=== PATIENT | male | born 1995 | race Caucasian/White ===

== ENCOUNTER 2019-10-13 10:43 | Inpatient (IN) | payer OTHER, SELFPAY ==
[~2019-10-13] VITALS: Ht 172.7 cm; Wt 117.9 kg
[2019-10-13] MEDS ORDERED: ACETAMINOPHEN EXTRA STRENGTH 500 MG TABLET ONE ×2 (11:09→15:39)
[2019-10-13 12:48] LABS: RAPID GROUP A STREP NEGATIVE (NEGATIVE)
[2019-10-13 14:30] LABS: BASOPHILS % (AUTO) 0.5 % (0.0-5.0); EOSINOPHILS % (AUTO) 0.4 % (0.0-8.0); HEMATOCRIT 48.5 % (42-54); LYMPHOCYTES % (AUTO) 5.6 % (21.0-51.0); MEAN CORPUSCULAR HEMOGLOBIN 28.5 pg (27.0-33.0); MEAN CORPUSCULAR HGB CONC 33.4 g/dL (32.0-36.0); MEAN CORPUSCULAR VOLUME 85.2 fL (79-99); MONOCYTES % (AUTO) 12.8 % (3.0-13.0); NEUTROPHILS % (AUTO) 80.2 % (40.0-77.0); PLATELET COUNT (AUTO) 238 K/uL (130-400); RED BLOOD CELL COUNT(AUTO) 5.69 MIL/uL (4.50-6.20); RED CELL DISTRIBUTION WIDTH 13.1 % (11.0-15.5)
[2019-10-13] MEDS ORDERED: AZITHROMYCIN 500MG+NS 250ML 250 ML IV ONE (15:38)
[2019-10-13] MEDS ORDERED: CEFTRIAXONE SODIUM 1 GM ONE (15:38)
[2019-10-13 15:52] LABS: ALBUMIN 4.3 g/dL (3.5-5.0); BILIRUBIN,TOTAL 1.2 mg/dL (0.2-1.0); TOTAL PROTEIN, SERUM 8.5 g/dL (6.0-8.3)
[2019-10-13] MEDS ORDERED: ONDANSETRON HCL 4 MG/2 ML VIAL ONE (17:02)
[2019-10-13] MEDS ORDERED: DEXTROSE 50%-WATER 50 ML DISP.SYRIN IV PRN (19:45)
[2019-10-13] MEDS ORDERED: GLUCAGON 1MG KIT 1 MG ML IM PRN (19:45)
[2019-10-13] MEDS ORDERED: ONDANSETRON HCL 4 MG/2 ML VIAL IV PRN (21:00)
[2019-10-13] MEDS ORDERED: NITROGLYCERIN 0.4 MG SL TAB SL PRN (21:00)
[2019-10-13] MEDS ORDERED: ALBUTEROL INHALER 90MCG/INH IH PRN (21:00)
[2019-10-13] MEDS ORDERED: MORPHINE SULFATE 2 MG/ML 1ML SYG IVP PRN (21:00)
[2019-10-13] MEDS ORDERED: SODIUM CHLORIDE 0.9% 1000ML 1,000 ML IV SCH ×2 (21:30→22:00)
[2019-10-13] MEDS ORDERED: FAMOTIDINE/PF 20 MG/2 ML VIAL IV ONE (21:45)
[2019-10-13] MEDS ORDERED: KETOROLAC TROMETHAMINE 15MG/ML ONE (21:53)
[2019-10-13] MEDS ORDERED: ACETAMINOPHEN 120 MG SUPPOSITORY RC ONE (21:54)
[2019-10-13 22:00] LABS: CREATINE KINASE, TOTAL 38 U/L (21-232); MYOGLOBIN 21 ng/mL (10-92); TROPONIN I < 0.04 ng/mL (0.00-0.06)
[2019-10-13] MEDS ORDERED: HYDRALAZINE HCL 20 MG/ML VIAL IV PRN (22:00)
[2019-10-13] MEDS ORDERED: ACETAMINOPHEN 650 MG SUPPOSITORY RC PRN (22:00)
[2019-10-14] VITALS (8 sets, daily range): BP systolic 111–155; BP diastolic 60–83
[2019-10-14] MEDS ORDERED: METF500S7 PO (00:52)
[2019-10-14] MEDS: NYSTATIN 100000 UNIT/ML 5ML UDCUP PO SCH ×4 (05:00→20:37)
[2019-10-14] MEDS: INSULIN HUMULIN R 100 UNIT/ML 3ML SQ SCH ×3 (05:25→11:25)
[2019-10-14 06:18] LABS: BASOPHILS % (AUTO) 0.4 % (0.0-5.0); HEMATOCRIT 38.9 % (42-54); LYMPHOCYTES % (AUTO) 9.2 % (21.0-51.0); MEAN CORPUSCULAR HEMOGLOBIN 28.7 pg (27.0-33.0); MEAN CORPUSCULAR HGB CONC 33.2 g/dL (32.0-36.0); MEAN CORPUSCULAR VOLUME 86.6 fL (79-99); MONOCYTES % (AUTO) 14.2 % (3.0-13.0); NEUTROPHILS % (AUTO) 75.8 % (40.0-77.0); PLATELET COUNT (AUTO) 207 K/uL (130-400); RED BLOOD CELL COUNT(AUTO) 4.49 MIL/uL (4.50-6.20); WHITE BLOOD COUNT (AUTO) 9.3 K/uL (4.8-10.8)
[2019-10-14 06:35] LABS: INR 1.06 (0.85-1.15); PARTIAL THROMBOPLASTIN TIME 30.2 SEC (26.3-35.5); PROTHROMBIN TIME 11.4 SEC (9.6-11.6)
[2019-10-14 06:41] LABS: ALBUMIN 3.1 g/dL (3.5-5.0); BILIRUBIN,TOTAL 0.8 mg/dL (0.2-1.0); CREATININE 0.8 mg/dL (0.5-1.5); CRP QUANTITATIVE 128.3 mg/L (0.00-9.0); POTASSIUM 3.5 mmol/L (3.5-5.1); TOTAL PROTEIN, SERUM 6.6 g/dL (6.0-8.3)
[2019-10-14 06:55] LABS: FERRITIN 148 ng/mL (30-400)
[2019-10-14 07:32] LABS: HEMOGLOBIN A1C 9.3 % (4.0-6.0)
[2019-10-14] MEDS: ASPIRIN 81MG TAB.CHEW PO SCH (09:30)
[2019-10-14] MEDS: CEFTRIAXONE SODIUM 1 GM IVP SCH ×3 (09:32→20:35)
[2019-10-14] MEDS: FAMOTIDINE/PF 20 MG/2 ML VIAL IV SCH ×3 (09:32→20:35)
[2019-10-14] MEDS ORDERED: ACETAMINOPHEN 325 MG TAB ONE (09:50)
[2019-10-14] MEDS ORDERED: ACETAMINOPHEN 325 MG TAB PO PRN (10:00)
[2019-10-14] MEDS ORDERED: SODIUM CHLORIDE 0.9% 1000ML 1,000 ML IV ONE (14:00)
[2019-10-14] MEDS: SODIUM CHLORIDE 0.9% 1000ML 1,000 ML IV SCH ×2 (14:43→17:44)
[2019-10-14] MEDS ORDERED: FLUCONAZOLE 100 MG TAB PO ONE (15:10)
[2019-10-14] MEDS ORDERED: PHARMACY COMMUNICATION MISC SCH (15:30)
[2019-10-14] MEDS ORDERED: COMPOUND PO MISCELLANEOUS 1 EACH MISC MISC PRN (16:00)
[2019-10-14] MEDS ORDERED: LIDOCAINE HCL-MPF 1% 2ML VIAL IV PRN (16:15)
[2019-10-14] MEDS ORDERED: POTASSIUM CHLORIDE 20MEQ/100ML 100 ML IV PRN (16:15)
[2019-10-14] MEDS ORDERED: POTASSIUM CHLORIDE 10% ELIXIR 20 MEQ/15 ML UDCUP PO PRN (16:15)
[2019-10-14] MEDS: INSULIN LISPRO 100 UNIT/ML 3ML SQ SCH ×3 (16:30→21:00)
[2019-10-14] MEDS: POTASSIUM CHLORIDE 20 MEQ ERTAB PO PRN ×2 (17:44→21:48)
[2019-10-14 18:24] LABS: APPEARANCE,URINE Clear (CLEAR); BILIRUBIN,URINE Negative (NEGATIVE); COLOR,URINE Yellow (YELLOW); GLUCOSE, URINE (UA) TRACE mg/dL (NEGATIVE); KETONES,URINE >=80 mg/dL (NEGATIVE); LEUKOCYTE ESTERASE ,URINE Small (NEGATIVE); NITRATE,URINE Negative (NEGATIVE); OCCULT BLOOD,URINE Negative (NEGATIVE); PH,URINE 5.5 (5.0-8.0); PROTEIN,URINE Negative (NEGATIVE)
[2019-10-14 18:33] LABS: BACTERIA,URINE Few /HPF (None Seen); MUCUS,URINE Few LPF (None Seen); SQUAMOUS EPITHELIAL CELL,UR 0-2 /HPF (0-2)
[2019-10-14] MEDS: AZITHROMYCIN 500MG+NS 250ML 250 ML IV SCH ×2 (20:35)
[2019-10-14] MEDS: MAG HYDROX/AL HYDROX/SIMETH 30 ML, LIDOCAINE HCL 2% VISCOUS 30 ML, DIPHENHYDRAMINE HCL ... PO SCH ×3 (20:35)
[2019-10-14] MEDS: NYSTATIN 30 GM CREAM.GM. TP SCH (20:36)
[2019-10-14] MEDS ORDERED: INSULIN GLARGINE 100 UNITS/ML 10 ML VIAL SQ SCH (21:00)
[2019-10-15 00:21] VITALS: BP 129/75
[2019-10-15 04:02] VITALS: BP 128/71
[2019-10-15] MEDS: SODIUM CHLORIDE 0.9% 1000ML 1,000 ML IV SCH ×5 (04:31→18:00)
[2019-10-15 04:54] LABS: BASOPHILS % (AUTO) 0.4 % (0.0-5.0); HEMATOCRIT 39.3 % (42-54); LYMPHOCYTES % (AUTO) 9.9 % (21.0-51.0); MEAN CORPUSCULAR HEMOGLOBIN 28.4 pg (27.0-33.0); MEAN CORPUSCULAR HGB CONC 33.1 g/dL (32.0-36.0); MEAN CORPUSCULAR VOLUME 85.8 fL (79-99); MONOCYTES % (AUTO) 13.9 % (3.0-13.0); NEUTROPHILS % (AUTO) 75.5 % (40.0-77.0); PLATELET COUNT (AUTO) 198 K/uL (130-400); RED BLOOD CELL COUNT(AUTO) 4.58 MIL/uL (4.50-6.20); RED CELL DISTRIBUTION WIDTH 12.8 % (11.0-15.5); WHITE BLOOD COUNT (AUTO) 7.1 K/uL (4.8-10.8)
[2019-10-15 05:36] LABS: ALANINE AMINOTRANSFERASE 20 U/L (12-78); ALBUMIN 3.1 g/dL (3.5-5.0); ASPARTATE AMINOTRANSFERASE 19 U/L (10-37); BILIRUBIN,TOTAL 0.4 mg/dL (0.2-1.0); CARBON DIOXIDE 25 mmol/L (21-32); CHLORIDE 101 mmol/L (101-111); CREATINE KINASE, TOTAL 44 U/L (21-232); CREATININE 0.8 mg/dL (0.5-1.5); GLOMERULAR FILTR. RATE CALC 124 mL/min (>60); GLUCOSE,RANDOM 186 mg/dL (70-105); MYOGLOBIN 15 ng/mL (10-92); PHOSPHORUS 2.8 mg/dL (2.5-4.9); POTASSIUM 3.7 mmol/L (3.5-5.1); SODIUM SERUM 137 mmol/L (136-145); TOTAL PROTEIN, SERUM 6.8 g/dL (6.0-8.3); UREA NITROGEN, BLOOD 7 mg/dL (7-18)
[2019-10-15] MEDS: NYSTATIN 100000 UNIT/ML 5ML UDCUP PO SCH ×2 (06:04→12:22)
[2019-10-15] MEDS: INSULIN LISPRO 100 UNIT/ML 3ML SQ SCH ×6 (06:50→17:00)
[2019-10-15] MEDS: ASPIRIN 81MG TAB.CHEW PO SCH (08:04)
[2019-10-15] MEDS: POTASSIUM CHLORIDE 20 MEQ ERTAB PO PRN ×2 (08:04→12:22)
[2019-10-15] MEDS: CEFTRIAXONE SODIUM 1 GM IVP SCH (08:04)
[2019-10-15] MEDS: FAMOTIDINE/PF 20 MG/2 ML VIAL IV SCH (08:04)
[2019-10-15] MEDS: NYSTATIN 30 GM CREAM.GM. TP SCH ×2 (08:05→12:13)
[2019-10-15] MEDS: MAG HYDROX/AL HYDROX/SIMETH 30 ML, LIDOCAINE HCL 2% VISCOUS 30 ML, DIPHENHYDRAMINE HCL ... PO SCH ×3 (08:05)
[2019-10-15] MEDS ORDERED: KETOROLAC TROMETHAMINE 30MG/ML ONE (08:38)
[2019-10-15] MEDS: METRONIDAZOLE 500 MG TABLET PO SCH ×2 (08:39→16:34)
[2019-10-15] MEDS ORDERED: METR500T PO (08:42)
[2019-10-15] MEDS ORDERED: INSLAN SQ (08:42)
[2019-10-15] MEDS ORDERED: METF-445 PO (08:42)
[2019-10-15] MEDS ORDERED: IBUP-2077 PO (08:42)
[2019-10-15] MEDS ORDERED: LEVO500T2 PO (08:42)
[2019-10-15 08:45] VITALS: BP 121/62
[2019-10-15] MEDS ORDERED: KETOROLAC TROMETHAMINE 30MG/ML IV SCH (08:45)
[2019-10-15] MEDS ORDERED: LEVOFLOXACIN 500 MG TABLET PO SCH (09:00)
[2019-10-15 12:44] VITALS: BP 113/63
--- NOTE | 2019-10-15 16:40 | NUR ---
DC Plan Discussed dc plan with patient. States lives with aunt Winifred. Independently performs ADLs. Denies any HH, DME, or provider services. Employed as a provider. States feels safe returning home upon discharge. Denies any other questions or concerns. CD Addendum: 10/15/19 at 1647 by GEE SILVA CM Amended: Links added.
[2019-10-15] MEDS ORDERED: IBUPROFEN 800 MG TAB PO SCH (17:00)
--- NOTE | 2019-10-15 18:30 | NUR ---
DC PROLONGED DISCHARGE ORDER PLACED SINCE 829, BUT PATIENT WAS STILL COMPLAINING OF PAIN TO THROAT AND COLD SORES TO MOUTH. DR LEVY MADE AWARE AND ORDERED A ONE TIME DOSE OF TORADOL FOR PAIN. PER DR LEVY, KEEP PATIENT UNTIL AFTERNOON TO SEE IF HIS PAIN LEVEL IMPROVES. TORADOL GIVEN. AFTER TORADOL, PATIENT STILL COMPLAINED OF PAIN. DR LEVY NOTIFIED. IBUPROFEN WAS ORDERED A ONE TIME DOSE WELL. JUST BEFORE IBUPROFEN GIVEN, PATIENT DEVELOPED A LOW GRADE TEMPERATURE OF 100. IBUPROFEN GIVEN. PATIENT TEMPERATURE RECHECKED AT 1740, AND WAS 101.4. DR LEVY NOTIFIED AND STATED OK TO SEND PATIENT HOME LONG HE PICKS UP HIS ANTIBIOTICS. [facility] ON [address] CALLED AND STATED MEDS WERE READY. PATIENT STATES HE FEELS OK TO GO HOME AT THIS TIME. PATIENT GIVEN DC INSTRUCTIONS AND PRESCRIPTIONS TO BE PICKED UP AT PATIENT'S PHARMACY. PATIENT AGREES TO COUNTERINTELLIGENCE/HUMINT SPECIALIST HIS MEDICATION AFTER HE LEAVES HERE. PATIENT DISCHARGED HOME WITH FAMILY AT THIS TIME. PIV AND TELEPACK REMOVED
== END 2019-10-15 18:47 | disposition home or self-care (01) | DRG 871 ==
LOC: EDH 10:43 → EDHIP 21:00 → 2DH 23:47
PROVIDERS: ADMIT Internal Medicine; ATTEND Internal Medicine
DX: A41.9 Sepsis, unspecified organism (principal); J18.9 Pneumonia, unspecified organism; Z68.41 Body mass index [BMI] 40.0-44.9, adult; B00.1 Herpesviral vesicular dermatitis; B37.42 Candidal balanitis; E66.01 Morbid (severe) obesity due to excess calories; K52.9 Noninfective gastroenteritis and colitis, unspecified; E11.9 Type 2 diabetes mellitus without complications; Z20.828 Contact with and (suspected) exposure to other viral communicable diseases; E86.1 Hypovolemia
CPT/HCPCS: 36415; 71045; 74150; 80053; 80061; 81001; 82550; 82728; 82948; 83036; 83605; 83615; 83630; 83735; 83874; 84100; 84145; 84484; 85025; 85378; 85610; 85730; 86140; 87040; 87177; 87338; 87507; 87804; 87880; 93005; A6250; G0378; J0456; J0696; J1885; J2405; J3490; J7030; U0003